=== PATIENT | male | born 1950 | race Caucasian/White ===

== ENCOUNTER 2024-03-11 12:04 | Emergency (ER) | payer MEDICARE, OTHER, SELFPAY ==
[2024-03-11 12:17] VITALS: BP 168/76
--- NOTE | 2024-03-11 13:09 | ED.GENMED ---
History of Present Illness
<Shazia Durham PA-C - Last Filed: 03/11/24 16:39>
General
Chief Complaint: Skin Problem
Source: patient
Exam Limitations: none
Time Seen by Provider: 03/11/24 12:51
Nursing documentation reviewed up to this point in time: agreed with
Travel History
Have you had any contact with someone who has COVID-19?: No
Do you have any symptoms of coronavirus? Fever > 100 degrees, chills, cough, shortness of breath, sore throat, loss of taste or smell, muscle aches, or headache?: No
History of Present Illness
History of Present Illness:
74-year-old male with a past medical history of hypertension, newly diagnosed diabetes, hyperlipidemia presenting to emergency department today with concerns of rash on his bilateral lower extremities as well as swelling. Patient states that he has
had the swelling for many months now it seems to come and go. Patient states that he first noticed the rash a few weeks ago and has been getting worse. Patient states that the rash is not painful, patient has no issues with ambulation. Patient
states that the rash is not. Patient does not work outside, denies any exposure to insects. Patient denies any history of heart failure, any shortness of breath, any chest pain, any history of liver or kidney disease. Patient states that he also
has a rash and some lesions extending over his foot. Patient is not yet seen a administrative judge yet with his new diabetes diagnosis. Patient denies fevers or chills, nausea or vomiting.
Review of Systems
<Shazia Durham PA-C - Last Filed: 03/11/24 16:39>
Review of Systems
All Other Systems: ROS reviewed and negative except as documented in HPI and ROS
Phy Exam
<Shazia Durham PA-C - Last Filed: 03/11/24 16:39>
Physical Exam
Physical Exam:
General: Patient is well appearing and in no acute distress; non-toxic
Skin: Bilateral lower extremity swelling with cellulitic rash and scattered open lesions draining clear fluid. The rash extends from the mid anterior calf to the top of the feet bilaterally.
Head: Normocephalic, atraumatic
Eyes: Sclera non-icteric. EOMs intact.
Cardiac: Regular rate and rhythm, no murmurs
Peripheral Vascular: See skin exam above. 2+ dorsalis pedis pulses bilaterally.
Pulm: Normal respiratory effort
Musculoskeletal: No pain with passive range of motion of bilateral lower extremities, no bony tenderness to palpation of bilateral lower extremities
Neuro: CN II-XII intact, no focal neurologic deficits.
Psychiatric: Appropriate mood and affect.
Course
<Shazia Durham PA-C - Last Filed: 03/11/24 16:39>
Vital Signs
Initial and Last Documented VS:
Initial Vital Signs
Temp Pulse Resp BP Pulse Ox
98.3 F 81 18 168/76 95
03/11/24 12:17 03/11/24 12:17 03/11/24 12:17 03/11/24 12:17 03/11/24 12:17
Last Documented Vital Signs
Temp Pulse Resp BP Pulse Ox
98.3 F 74 20 164/74 96
03/11/24 12:17 03/11/24 15:02 03/11/24 15:02 03/11/24 15:02 03/11/24 15:02
<Tato Garcia MD - Last Filed: 03/11/24 20:11>
Vital Signs
Initial and Last Documented VS:
Initial Vital Signs
Temp Pulse Resp BP Pulse Ox
98.3 F 81 18 168/76 95
03/11/24 12:17 03/11/24 12:17 03/11/24 12:17 03/11/24 12:17 03/11/24 12:17
Last Documented Vital Signs
Temp Pulse Resp BP Pulse Ox
98.3 F 74 20 164/74 96
03/11/24 12:17 03/11/24 15:02 03/11/24 15:02 03/11/24 15:02 03/11/24 15:02
<Shazia Durham PA-C - Last Filed: 03/11/24 16:39>
MDM/Problems Addressed
Differential Diagnosis Includes:
Differentials include cellulitis, erysipelas, psoriasis, contact dermatitis, lower extremity venous insufficiency, peripheral arterial disease
MDM/Problems Addressed:
rash, swelling
Chronic conditions affecting care:
Newly diagnosed diabetes, hypertension
Acute Exacerbation and/or Progression of Chronic Illness:
Newly diagnosed diabetes, hypertension
<Shazia Durham PA-C - Last Filed: 03/11/24 16:39>
*Pulse Oximetry
Patient hypoxic: no
*Critical Care Note
Total Time (30-74mins, 75-104mins- exclusive of procedures): Not Applicable
Data Reviewed
Review of Other/Old Records Reveals: Records (No previous ER physician documentation to review) and Discharge Summary (Previous discharge summaries in [facility] to review)
Source: patient and records
<Shazia Durham PA-C - Last Filed: 03/11/24 16:39>
Patient Management
Escalation/DeEscalation of care consider admission/obs:
74-year-old male with a past medical history of hypertension, newly diagnosed diabetes, hyperlipidemia presenting to emergency department today with concerns of rash on his bilateral lower extremities as well as swelling. Patient states that he has
had the swelling for many months now it seems to come and go. Patient states that he first noticed the rash a few weeks ago and has been getting worse. Patient states that he had leftover amoxicillin from a different issue and started taking it to
see if it would start helping with the rash, he said it did. Considering this, we will send him home with a full course of amoxicillin for suspected cellulitis. Considering patient has no shortness of breath or chest pain, not think any heart
failure workup is necessary at this time. Considering it is bilateral and not associated with pain, I do not think we need to do bilateral DVT studies, in addition considering his no claudication, no arterial study yesterday at this time. Patient
will follow-up with his primary and podiatry, discussed indications for vascular follow up.
ED Attending Note
<Shazia Durham PA-C - Last Filed: 03/11/24 16:39>
-
Portions of this chart may have been created with voice recognition software.� Occasional wrong word or��sound alike� substitutions may have occurred due to the inherent limitations of voice recognition software.
<Tato Garcia MD - Last Filed: 03/11/24 20:11>
ED Attending Note
Patient seen and examined by attending physician: Yes
ED Attending Note:
Patient presents to ED secondary to worsening lower leg swelling over the past 1 year. Recently, patient noted development of rash and open drainage on his legs. Patient had leftover amoxicillin, of which he took 2 doses last week, with
significant improvement in symptoms. Denies fever or chills. Denies nausea or vomiting. Denies leg pain. Denies previous history of leg infection. Patient also has ongoing back pain, which has made it difficult for him to ambulate. Patient has
been evaluated by paint trimmer pipe bowls since last year, and has received multiple epidural injections as well as an outpatient MRI of spine.
Physical Exam
General: no apparent distress, not acutely ill. afebrile.
Head: nc/at. eomi
Neck: supple. normal range of motion.
Neuro: alert and oriented. no focal neurological deficits
Skin: no rash
Psychiatric: well kept. interactive and cooperative
Extremities: B/L LE edema with venous stasis changes, with clear drainage from multiple areas, with diffuse erythema. no warmth/tenderness. no calf tenderness. palpable DPP.
History and exam consistent with likely ongoing lower extremity edema, likely secondary to immobility as well as venous stasis. Nonspecific rash noted with clear fluid drainage. As patient reports significant improvement symptoms after only 2
doses amoxicillin, decision made to continue amoxicillin as an outpatient, along with recommendations follow-up PCP and podiatry as an outpatient evaluation. In addition, recommended vascular evaluation as an outpatient, and potential ultrasound,
to make sure there is adequate blood flow. Patient expressed understanding, at time of discharge, to the care of his family.
Discharge Plan
Departure
Patient Disposition: Home (Routine Discharge)
Date of Disposition: 03/11/24
Time of Disposition: 15:00
Patient with high blood pressure during this ER visit?: Yes
Condition: Good
Discharge Problem:
Cellulitis, Swelling
Instructions: Wound Care (DC), Cellulitis (Skin Infection), Adult (DC), BLOOD PRESSURE
Prescriptions:
New
amoxicillin 500 mg capsule
500 mg PO Q8H 7 Days Qty: 21 0RF
Referrals:
Wing Joseph MD [Family Provider] -
Amy Echols DPM [Specified Professional Personl] - Call in 1-3 days for appt
John Maier MD [Active] -
Activity Restrictions/Additional Instructions:
Please continue amoxicillin. Please take one tablet 3 times daily for 7 days total.
Please schedule a follow-up appointment with your primary care provider in one week.
Please return emergency department should you experience fevers or chills, abdominal pain, nausea, vomiting, pain with walking, any other concerning signs or symptoms like chest pain, shortness of breath, etc.
Interventions
Interventions:
*Risk Screen - Suicide Last Done: 03/11/24 13:52
*General Assessment Last Done: 03/11/24 13:52
*Neglect/Abuse Screening Last Done: 03/11/24 13:52
ED- Fall Risk Assessment Last Done: 03/11/24 13:52
*ED COVID-19 Vaccine History Last Done: 03/11/24 12:17
*Nursing Disposition Last Done: 03/11/24 15:16
ED-Skin Assessment Last Done: 03/11/24 13:52
Discharge Date and Time
Discharge Date/Time: 03/11/24 15:16
Print Language: MONGOLIAN
[2024-03-11 15:02] VITALS: BP 164/74
== END 2024-03-11 15:16 | disposition home or self-care (01) ==
LOC: EMR 12:04
PROVIDERS: EMERGENCY PHYSICIAN Emergency Medicine; FAMILY PHYSICIAN Family Medicine
DX: L03.116 Cellulitis of left lower limb (principal); L03.115 Cellulitis of right lower limb; R22.43 Localized swelling, mass and lump, lower limb, bilateral; I10 Essential (primary) hypertension; E11.9 Type 2 diabetes mellitus without complications; E78.5 Hyperlipidemia, unspecified; Z79.84 Long term (current) use of oral hypoglycemic drugs
CPT/HCPCS: 99283